=== PATIENT | male | born 1985 | race Two or more races ===

== ENCOUNTER 2025-02-01 17:17 | Emergency (ER) | payer OTHER, SELFPAY ==
[2025-02-01 19:05] VITALS: BP 153/98; PULSE 74; RESP 16; TEMP 36.7; O2SAT 97
--- NOTE | 2025-02-01 19:07 | XR_ITS ---
EXAMINATION: Right hand 2 views TECHNIQUE: AP lateral right hand 2 views Date and time: February 01, 2025, 192 hours INDICATIONS: Onset right hand pain today FINDINGS: No acute fracture No dislocation No foreign body IMPRESSION: No acute fracture
--- NOTE | 2025-02-01 21:51 | EDNOTE_ITS ---
Upper Extremity Injury RME/HPI General Chief Complaint: Hand/Wrist Problems Stated Complaint: SEVERE PAIN R) THUMB Time Seen by Provider: 02/01/25 18:38 Arrival date/time: 02/01/25 17:17 This is a case of 39-year-old male with no medical history came into the emergency room due to right thumb injury history of present illness started 2 days prior to arrival in the emergency room and the patient right thumb caught by a door closing sustaining pain swelling and subungual hematoma worsening of the symptoms this patient decided to sought consult here in the emergency room tetanus shot is up-to-date Limitations: no limitations Related Data Previous Rx's ?Medication ?Instructions ?Recorded cephalexin 500 mg capsule 500 mg PO Q8H 10 days #30 ca ps 02/01/25 ibuprofen 800 mg tablet 800 mg PO Q8H PRN pain #20 t abs 02/01/25 mupirocin 2 % topical ointment 1 applic topical BID #2 2 grams 02/01/25 (Centany) Allergies Allergy/AdvReac Type Severity Reaction Status Date / Time No Known Allergies Allergy Verified 02/01/25 17:21 Review of Systems Review of Systems Systems Reviewed: All systems reviewed, normal except as documented Constitutional Constitutional: Reports system reviewed and no additional complaints, except as documented and Reports as per HPI Cardiovascular Cardiovascular: Reports system reviewed and no additional complaints, except as documented and Reports as per HPI Respiratory Respiratory: Reports system reviewed and no additional complaints, except as documented and Reports as per HPI Gastrointestinal Gastrointestinal: Reports system reviewed and no additional complaints, except as documented and Reports as per HPI Genitourinary Genitourinary: Reports system reviewed and no additional complaints, except as documented and Reports as per HPI Integumentary/Breasts Skin/Breast: Reports system reviewed and no additional complaints, except as documented and Reports as per HPI Neurologic Neurologic: Reports system reviewed and no additional complaints, except as documented and Reports as per HPI Past Medical History Social History SMOKING STATUS: Never smoker ED Exam General Limitations: Present no limitations General appearance: Present alert, in no apparent distress and other (Patient is awake alert oriented not in distress nontoxic looking well-hydrated well- nourished) Head Head exam: Present atraumatic, normocephalic and normal inspection Eye Eye exam: Present normal appearance, PERRL and EOMI ENT ENT exam: Present normal exam, normal oropharynx and mucous membranes moist Neck Neck exam: Present normal inspection, full ROM and trachea midline; Absent tenderness, meningismus, lymphadenopathy or thyromegaly Chest Chest inspection: Present normal inspection and symmetric chest wall rise; Absent tenderness Respiratory Respiratory exam: Present normal lung sounds bilaterally; Absent respiratory distress, wheezes, stridor, accessory muscle use or prolonged expiratory phase Cardiovascular Cardiovascular exam: Present regular rate, normal rhythm and normal heart sounds; Absent bradycardia, tachycardia, irregular rhythm, systolic murmur or diastolic murmur Abdominal Exam Abdominal exam: Present soft and normal bowel sounds; Absent distention, tenderness, guarding, rebound, rigidity, diminished bowel sounds, hyperactive bowel sounds, hypoactive bowel sounds or organomegaly Extremities Exam Extremities exam: Present normal inspection and full ROM Expanded Upper Extremity Exam Hand exam: Present normal inspection, full ROM and other (No snuffbox tenderness noted is marked swelling and moderate to severe tenderness on the right thumb ROM limited due to pain pulses were full and equal capillary refill less than 2 seconds sensory intact noted subungual hematoma on the right fingernail 100% nail is intact); Absent tenderness, swelling, abrasion, laceration, skin avulsion, ecchymosis, deformity, crepitus, dislocation, erythema, amputation, nail avulsion or subungual hematoma Back Exam Back exam: Present normal inspection and full ROM Neurological Exam Neurological exam: Present alert, oriented X3, CN II-XII intact, normal gait and reflexes normal; Absent motor sensory deficit Psychiatric Psychiatric exam: Present normal affect and normal mood Skin Skin exam: Present warm, dry, intact, normal color and other (Subungual hematoma right thumb fingernail) Course Quality Measures none (Delay 8 inpatient or 20 patient for 4 hours) Orders Category Date Time Status XR hand RT 2V Stat Exams 02/01/25 19:07 Completed HYDROcodone*/APAP 5/325 [[place] 5/325] Med 02/01/25 21:16 Discontinued 1 tab PO X1 ONE Vital Signs Vital signs: Vital Signs Temperature 98.1 F 02/01/25 19:05 Pulse Rate 74 02/01/25 19:05 Respiratory Rate 16 02/01/25 19:05 Blood Pressure 153/98 H 02/01/25 19:05 Pulse Oximetry (%) 97 02/01/25 19:05 Oxygen Delivery Method Room Air 02/01/25 19:05 Oxygen saturation is 97% in room air PROCEDURES: Nail Trephination Time out: Yes Location (finger): right and thumb Sterile prep: betadine and chlorhexidine Method of drainage: nail cautery Procedure successful: Yes Patient tolerated procedure: well Complications: other (None) Extremity Injury MDM Narrative [facility] Narrative:: This is a case of 39-year-old male with no medical history came into the emergency room due to right thumb injury history of present illness started 2 days prior to arrival in the emergency room and the patient right thumb caught by a door closing sustaining pain swelling and subungual hematoma worsening of the symptoms this patient decided to sought consult here in the emergency room tetanus shot is up-to-date physical examination patient is awake alert oriented not in distress nontoxic looking well-hydrated well-nourished patient noted to have moderate to severe tenderness on the right thumb with swelling ROM is limited due to pain neurovascular intact nail is intact but with subungual hematoma the rest of the physical examination and neurological exam is normal and unremarkable x-ray showed no fracture no dislocation procedure was discussed with the patient and agreed evacuation of the subungual hematoma by the use of electrocautery was performed was able to remove completely the hematoma patient tolerated well the procedure no complication noted bleeding controlled wound was cleaned apply triple antibiotic covered by nonadherent gauze and applied finger splint patient tolerated well neurovascular intact patient was discharged with cephalexin to prevent infection ibuprofen for pain and mupirocin ointment RICE treatment will continue by the patient at home patient will follow-up with PCP in 2 days for reevaluation and for any worsening symptoms or any emergent concern return precaution in the ER was advised patient also advised that there is possibility that the nail will fall off and understand very well Patient was discharged with comfortable condition walking with stable gait. Patient verbalized no further complains explained diagnosis and answered patient question. Patient is comfortable with the proposed management plan including the need to follow up with his/her primary care physician and any specialist if applicable Discussed patient for any urgent condition or worsening sx, He/She needed to go to emergency room immediately or call 911. Patient acknowledge the responsibility to follow up as instructed and to monitor her/his symptoms. For any persistence of the symptoms for more than 3-5 days return precaution advised. Discussed the result of the test and was given printed discharge instruction Patient data External records reviewed:: [facility] previous records Clinical information provided by:: patient Social determinants that could affect healthcare access:: none Patient has the following chronic illnesses:: none How is presenting disease/condition affected by chronic disease/condition?: no chronic disease Evaluation data The following diagnostics were reviewed and interpreted by me:: radiology exam(s) and other (specify) (Reviewed) Lab and/or radiology exams considered but not ordered:: Reviewed Interpretation Summary: Reviewed Medications / Prescriptions Medications or Prescriptions considered but not ordered:: Given Medication administrations:: Medication Administration History Discontinued Medications Hydrocodone Bitart/Acetaminophen (Hydrocodone/[place] 5/325 Tablet) 1 tab PO X1 ONE Stop: 02/01/25 21:17 Last Admin: 02/01/25 21:35 Dose: Not Given Documented By: BD Non-Admin Reason: Patient Refused Given Consultations Consultation(s) initiated? (list below): No Diagnosis Upper Extremity Injury Differential Diagnosis: dislocation of finger and other (Finger fracture) Most likely diagnosis given after review of the tests above:: Thumb sprain subungual hematoma Admission Indicated Admission indicated?: not indicated Explain why admission is indicated or not indicated:: Not indicated Admission Request Was there a request for admission?: No Admission Attestation Admission request attestation: Not indicated Disposition Plan Disposition Plan: Discharge Discharge Attestation Discharge Attestation: The patient and all family members were given an opportunity to ask questions and understood the discharge instructions. Discharge instructions specifically effects, indications for sooner follow up or return to the emergency department, and the expected course of current diagnosis. Patient condition: Stable Discharge Plan Plan Patient Disposition: HOME (Self Care) Patient condition on transfer: Stable Prescriptions/Referrals Prescriptions/Med Rec: New cephalexin 500 mg capsule 500 mg PO Q8H 10 Days Qty: 30 0RF ibuprofen 800 mg tablet 800 mg PO Q8H PRN (Reason: pain) Qty: 20 0RF mupirocin [Centany] 2 % ointment 1 applic topical BID Qty: 22 0RF Referrals: No Primary/Family,Physician [Primary Care Provider] - In 1 week Problem List Clinical Impression: Sprain of hand, thumb, right, Hematoma, subungual, thumb, right Patient/Caregiver Discharge Instructions Education Materials: ED Finger Sprain, ED Subungual Hematoma, ED RICE Additional Instructions: Follow-up with your primary care physician in 2 days for reevaluation worsening symptoms or any emergent concern such as a redness swelling discharge from the wound pain fever chills signs and symptoms of infection return to the emergency room immediately or call 911 ice pack every 2 hours for 20 minutes for 24 hours then alternate with warm compress keep the finger splint in place until cleared by your primary care physician finish course of antibiotic Print Language: Hebrew Stand Alone Forms: Marilee Award Info., Patient Portal Info Letter PA/SENIOR RESEARCH SCIENTIST Supervising Physician PA/SENIOR RESEARCH SCIENTIST Supervising Physician: Dr. Natalia Watts
== END 2025-02-01 22:03 | disposition home or self-care (01) ==
PROVIDERS: Emergency Provider Emergency Medicine
DX: S63.601A Unspecified sprain of right thumb, initial encounter (principal); W23.2XXA Caught, crushed, jammed or pinched between a moving and stationary object, initial encounter; S60.111A Contusion of right thumb with damage to nail, initial encounter
CPT/HCPCS: 11740; 73120; 99283